=== PATIENT | female | born 1965 | race Hispanic/Latino ===

== ENCOUNTER 2020-11-19 02:09 | Emergency (ER) | payer SELFPAY ==
[~2020-11-19] VITALS: Ht 160 cm; Wt 77.1 kg
[2020-11-19] MEDS ORDERED: KETOROLAC TROMETHAMINE 30 MG/ML VIAL IV STA (02:27)
[2020-11-19] MEDS ORDERED: SODIUM CHLORIDE 0.9% 1000ML 1,000 ML IV STA (02:27)
[2020-11-19] MEDS ORDERED: PIPER-TAZ 3.375 GM / NS 50ML IV ONE (02:30)
[2020-11-19] MEDS ORDERED: SODIUM CHLORIDE FLUSH 10 ML SYR INJ PRN (02:30)
[2020-11-19] MEDS ORDERED: IOPAMIDOL 370 MG/ML 200 ML INFUS..BTL INJ ONE (02:44)
[2020-11-19] MEDS ORDERED: SODIUM CHLORIDE 0.9% 50ML 50 ML ONE (02:44)
[2020-11-19] MEDS ORDERED: KETOROLAC TROMETHAMINE 30 MG/ML VIAL ONE (02:49)
[2020-11-19] MEDS ORDERED: SODIUM CHLORIDE 0.9% 1000ML 1,000 ML ONE (02:50)
[2020-11-19] MEDS ORDERED: PIPER-TAZ 3.375 GM 50 ML ONE (02:50)
[2020-11-19] MEDS ORDERED: METHYLPREDNISOLONE SOD SUCC 125 MG/2ML VIAL IV ONE (03:30)
[2020-11-19] MEDS ORDERED: CIPRO500 MG PO (03:34)
[2020-11-19] MEDS ORDERED: PREDNISONE20 MG PO (03:34)
[2020-11-19] MEDS ORDERED: ONDANSETRON ODT4 MG PO (03:34)
[2020-11-19] MEDS ORDERED: METRONIDAZOLE500 MG PO (03:34)
[2020-11-19] MEDS ORDERED: METHYLPREDNISOLONE SOD SUCC 125 MG/2ML VIAL ONE (03:38)
== END 2020-11-19 03:49 | disposition home or self-care (01) ==
LOC: FSED 02:28
DX: R10.32 Left lower quadrant pain (principal); R50.9 Fever, unspecified; K57.32 Diverticulitis of large intestine without perforation or abscess without bleeding; E86.0 Dehydration
CPT/HCPCS: 74177; 80048; 80076; 81003; 85025; 99284; J1885; J2543; J2930; J7030; Q9967

== ENCOUNTER 2025-02-25 22:11 | Emergency (ER) | payer BC ==
[~2025-02-25] VITALS: Ht 160 cm; Wt 77.6 kg
[~2025-02-25 22:11] MED LIST: CIPRO500 MG PO; METRONIDAZOLE500 MG PO; ONDANSETRON ODT4 MG PO; PREDNISONE20 MG PO
[2025-02-25 22:25] VITALS: PULSE 91; RESP 20
[2025-02-25] MEDS: LACTATED RINGER'S 1,000 ML IV ONE (22:48)
[2025-02-25] MEDS: KETOROLAC TROMETHAMINE 30 MG/ML VIAL IV ONE (22:48)
[2025-02-25] MEDS: FAMOTIDINE 20 MG/2 ML VIAL IV ONE (22:49)
[2025-02-25] MEDS: ONDANSETRON HCL INJ 2MG/ML 2ML 2 MG/ML VIAL IV ONE (22:49)
[2025-02-25 22:59] VITALS: TEMP 98.5
[2025-02-25] MEDS ORDERED: LEVOFLOXACIN500 MG PO (23:24)
[2025-02-25] MEDS ORDERED: ONDANSETRON ODT4 MG PO (23:24)
[2025-02-25] MEDS ORDERED: ULTRAM 50MG50 MG PO (23:24)
[2025-02-25] MEDS ORDERED: TYLENOL325 MG PO (23:24)
[2025-02-25] MEDS ORDERED: METRONIDAZOLE500 MG PO (23:24)
[2025-02-25] MEDS: METRONIDAZOLE 500MG/NS 100ML 100 ML IV ONE (23:28)
[2025-02-25] MEDS: LEVOFLOXACIN 500 MG TAB PO ONE (23:28)
[2025-02-26 01:05] VITALS: BP 158/88; PULSE 88; RESP 18; TEMP 98.4; O2SAT 95
== END 2025-02-26 01:05 | disposition home or self-care (01) ==
LOC: FSED 22:18
DX: R11.2 Nausea with vomiting, unspecified (principal); R10.30 Lower abdominal pain, unspecified; D72.829 Elevated white blood cell count, unspecified; E86.0 Dehydration; K57.32 Diverticulitis of large intestine without perforation or abscess without bleeding
CPT/HCPCS: 74176; 80048; 80076; 80307; 85025; 96374; 96375; 99284; J1308; J1885; J2405; J7121